=== PATIENT | female | born 1985 | race African-American/Black ===

== ENCOUNTER 2016-10-18 09:18 | Emergency (ER) | payer MEDICAID ==
[~2016-10-18] VITALS: Ht 167.6 cm; Wt 69.4 kg
[2016-10-18 09:18] VITALS: BP 144/99
== END 2016-10-18 11:35 | disposition home or self-care (01) ==
LOC: ER 09:21
DX: Z48.00 Encounter for change or removal of nonsurgical wound dressing (principal); O21.0 Mild hyperemesis gravidarum; Z3A.16 16 weeks gestation of pregnancy; J45.909 Unspecified asthma, uncomplicated; M32.9 Systemic lupus erythematosus, unspecified; Z86.73 Personal history of transient ischemic attack (TIA), and cerebral infarction without residual deficits
CPT/HCPCS: A4606; Z7502; Z7610

== ENCOUNTER 2017-03-21 14:54 | Emergency (ER) | payer SELFPAY ==
[~2017-03-21] VITALS: Ht 167.6 cm; Wt 77.1 kg
--- NOTE | 2017-03-21 14:55 | NUR ---
AAOX3, BIBRA 89 FROM HOME C/O ALLERGIC REACTION TO SUNFLOWER SEEDS, FACE AND TONGUE SWELLING, EPI 0.5 GIVEN IN THE FIELD, PT STS THAT SHE TOOK BENADRYL BACKGROUND CHECK COORDINATOR. SKIN IS WARM AND DRY. RESP IS EVEN AND SLIGHTLY LABORED. DR CEJA AT BS FOR EVAL.
[2017-03-21] MEDS ORDERED: methylPREDNISolone SOD SUCC 125 MG/2ML VIAL ONE (15:10)
[2017-03-21] MEDS ORDERED: EPINEPHRINE (1:1000) 1 MG/ML AMPUL ONE (15:10)
[2017-03-21] MEDS ORDERED: IV SET PRIMARY 1 EA INFUS.SET MC ONE (15:10)
[2017-03-21] MEDS ORDERED: IV NS 0.9% 1,000 ML ONE (15:10)
[2017-03-21] MEDS ORDERED: diphenhydrAMINE HCL 50 MG/ML VIAL ONE (15:10)
--- NOTE | 2017-03-21 15:26 | NUR ---
PATIENT MEDICATED PER MD ORDERS.
[2017-03-21] MEDS ORDERED: EPINEPHRINE (1:1000) 1 MG/ML AMPUL IM ONE (15:30)
[2017-03-21] MEDS ORDERED: IV NS 0.9% 1,000 ML BAG IV ONE (15:30)
[2017-03-21] MEDS ORDERED: diphenhydrAMINE HCL 50 MG/ML VIAL IV ONE (15:30)
[2017-03-21] MEDS ORDERED: methylPREDNISolone SOD SUCC 125 MG/2ML VIAL IV ONE (15:30)
--- NOTE | 2017-03-21 17:51 | NUR ---
PT SLEEPING, VSS. WAITING FOR FAMILY MEMBER TO PICK HER UP.
--- NOTE | 2017-03-21 18:00 | NUR ---
IV removed. Catheter intact and site benign. Pressure and 4x4 applied to site. No bleeding noted.
[2017-03-21 18:08] VITALS: BP 108/58
--- NOTE | 2017-03-21 18:24 | NUR ---
Patient discharged to home in stable condition. Written and verbal after care instructions given. Patient verbalizes understanding of instruction. Pt ambulatory with a steady gait. All questions answered.
== END 2017-03-21 18:30 | disposition home or self-care (01) ==
LOC: ER 14:55
DX: T78.05XA Anaphylactic reaction due to tree nuts and seeds, initial encounter (principal); I10 Essential (primary) hypertension; J45.909 Unspecified asthma, uncomplicated; M32.9 Systemic lupus erythematosus, unspecified; Z86.73 Personal history of transient ischemic attack (TIA), and cerebral infarction without residual deficits; Y92.89 Other specified places as the place of occurrence of the external cause
CPT/HCPCS: A4606; J0171; J1200; J2930; J7030; Z7610

== ENCOUNTER 2017-06-11 12:33 | Emergency (ER) | payer SELFPAY ==
[~2017-06-11] VITALS: Ht 167.6 cm; Wt 68.0 kg
[2017-06-11 12:41] VITALS: BP 142/105
== END 2017-06-11 13:40 | disposition home or self-care (01) ==
LOC: ER 12:40
DX: S90.111A Contusion of right great toe without damage to nail, initial encounter (principal); I10 Essential (primary) hypertension; J45.909 Unspecified asthma, uncomplicated; M32.9 Systemic lupus erythematosus, unspecified; Z86.73 Personal history of transient ischemic attack (TIA), and cerebral infarction without residual deficits; Y93.89 Activity, other specified; W22.8XXA Striking against or struck by other objects, initial encounter; Y92.89 Other specified places as the place of occurrence of the external cause; Y99.9 Unspecified external cause status
CPT/HCPCS: 73660-TC; A4606; Z7610

== ENCOUNTER 2017-07-22 23:22 | Emergency (ER) | payer MEDICAID ==
[~2017-07-22] VITALS: Ht 167.6 cm; Wt 65.8 kg
[2017-07-22 23:38] VITALS: BP 154/97
== END 2017-07-23 02:36 | disposition home or self-care (01) ==
LOC: ER 23:27
DX: S90.31XA Contusion of right foot, initial encounter (principal); J45.909 Unspecified asthma, uncomplicated; M32.9 Systemic lupus erythematosus, unspecified; I10 Essential (primary) hypertension; Z86.73 Personal history of transient ischemic attack (TIA), and cerebral infarction without residual deficits; W20.8XXA Other cause of strike by thrown, projected or falling object, initial encounter; Y93.89 Activity, other specified; Y92.89 Other specified places as the place of occurrence of the external cause; Y99.8 Other external cause status
CPT/HCPCS: 73630; 99284; A4606; Z7610